=== PATIENT | female | born 1990 | race Hispanic/Latino ===

== ENCOUNTER 2019-04-20 11:20 | Emergency (ER) | payer OTHER ==
--- NOTE | 2019-04-20 11:51 | ER ---
Nurse's Notes [facility] Name: Osmin Cedeno Age: 28 yrs Sex: Female : 1990 Arrival Date: 04/20/2019 Time: 11:23 Bed 17 Private MD: Ramila Lyon Diagnosis: Cutaneous abscess of chest wall Presentation: 04/20 11:27 Presenting complaint: Mother states: Last night she saw a boil underneath her bra line, aj1 and when her caregiver went to see what it was there was pus coming out of it. Transition of care: patient was not received from another setting of care. Onset of symptoms was March 2019. Risk Assessment: Do you want to hurt yourself or someone else? Patient reports no desire to harm self or others. Initial Sepsis Screen: Does the patient meet any 2 criteria? No. Patient's initial sepsis screen is negative. Does the patient have a suspected source of infection? Yes: Skin breakdown/wound. Care prior to arrival: None. 11:27 Method Of Arrival: Ambulatory aj 11:27 Acuity: NABIL 4 aj1 Triage Assessment: 11:30 General: Appears in no apparent distress. comfortable, Behavior is calm, cooperative, aj1 appropriate for age. Pain: Unable to use pain scale. Does not appear to understand pain scale. Neuro: Level of Consciousness is awake, alert, obeys commands. Historical: - Allergies: 11:30 No Known Allergies; aj1 - Home Meds: 11:30 None [Active]; aj1 - PMHx: 11:30 Hypertension; autism; aj1 - Immunization history:: Flu vaccine status is unknown. - Social history:: Smoking status: Patient/guardian denies using tobacco. - Ebola Screening: : Patient denies travel to an Ebola-affected area in the 21 days before illness onset. Screenin:45 Abuse screen: no apparent signs noted. Nutritional screening: No deficits noted. em Tuberculosis screening: No symptoms or risk factors identified. Fall Risk None identified. Assessment: 11:45 General: Appears in no apparent distress. comfortable, Behavior is calm, cooperative. em Pain: Unable to use pain scale. FLACC scale score is 0 out of 10. Neuro: Level of Consciousness is awake, alert, obeys commands. Cardiovascular: Capillary refill < 3 seconds is brisk Patient's skin is warm and dry. Respiratory: Airway is patent Respiratory effort is even, unlabored, Respiratory pattern is regular, symmetrical. Derm: Skin is intact, Skin is pink, warm \T\ dry. Wound noted under right breast Abscess located on under right breast is quarter sized, has purulent drainage, is red. Musculoskeletal: Capillary refill < 3 seconds, is brisk, Range of motion: intact in all extremities. Vital Signs: 11:30 BP 145 / 87; Pulse 82; Resp 18; Temp 98.8; Pulse Ox 100% on R/A; aj1 ED Course: 11:23 Patient arrived in ED. as 11: Ramila Lyon MD is Private Physician. as 11: [facility] kb 11: Francis Bassett MD is Attending Physician. kb 11: Triage completed. aj1 11:30 Arm band placed on Patient placed in an exam room. aj1 11:34 Elias Hardy LVN is Primary Nurse. em 11:45 Patient has correct armband on for positive identification. Bed in low position. Call em light in reach. Adult w/ patient. 12:00 No provider procedures requiring assistance completed. Patient did not have IV access em during this emergency room visit. Administered Medications: 11:51 Drug: Bactrim (160 mg-800 mg (DS) 1 tablet Route: PO; em 12:04 Follow up: Response: Medication administered at discharge. em 11:52 Drug: KeFLEX 500 mg Route: PO; em 12:05 Follow up: Response: Medication administered at discharge. em Outcome: 11:51 Discharge ordered by MD. 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 medication usage, wound care, Demonstrated understanding of instructions, follow-up care, medications, wound care, Prescriptions given X 2. 12:06 Patient left the ED. em Signatures: Juana Cedeno FNP-C FNP-Casi Foster, RN RN aj1 Elias Hardy LVN LVN em Sandrine Cardenas as
--- NOTE | 2019-04-20 11:52 | EDPHYS ---
Physician Documentation [facility] Name: Osmin Cedeno Age: 28 yrs Sex: Female : 1990 Arrival Date: 04/20/2019 Time: 11:23 Bed 17 Private MD: Ramila Lyon ED Physician Francis Bassett HPI: 04/20 11:48 This 28 yrs old Female presents to ER via Ambulatory with complaints of Boil. kb 11:48 The patient presents with an abscess of the below right breast, at bra line. kb Description: draining, erythematous. Onset: The symptoms/episode began/occurred 2 day(s) ago. Possible cause(s): unknown. Associated signs and symptoms: Pertinent positives: drainage, erythema, swelling, Pertinent negatives: foreign body sensation, fever, headache, nausea, shortness of breath, vomiting. Modifying factors: the symptoms are alleviated by nothing, the symptoms are aggravated by nothing. Severity of symptoms: At their worst the symptoms were mild, in the emergency department the symptoms are unchanged. The patient has not experienced similar symptoms in the past. The patient has not recently seen a physician. dime-sized abscess below right breast at bra line. Started draining yesterday. Historical: - Allergies: 11:30 No Known Allergies; aj1 - Home Meds: 11:30 None [Active]; aj1 - PMHx: 11:30 Hypertension; autism; aj1 - Immunization history:: Flu vaccine status is unknown. - Social history:: Smoking status: Patient/guardian denies using tobacco. - Ebola Screening: : Patient denies travel to an Ebola-affected area in the 21 days before illness onset. ROS: 11:45 Constitutional: Negative for fever, chills, and weight loss, Cardiovascular: Negative kb for chest pain, palpitations, and edema, Respiratory: Negative for shortness of breath, cough, wheezing, and pleuritic chest pain, Abdomen/GI: Negative for abdominal pain, nausea, vomiting, diarrhea, and constipation, MS/Extremity: Negative for injury and deformity, Neuro: Negative for headache, weakness, numbness, tingling, and seizure. 11:45 Skin: Positive for abscess, of the under right breast, at bra line, Negative for Exam: 11:46 Constitutional: This is a well developed, well nourished patient who is awake, alert, kb and in no acute distress. Head/Face: Normocephalic, atraumatic. Chest/axilla: Normal chest wall appearance and motion. Nontender with no deformity. No lesions are appreciated. Cardiovascular: Regular rate and rhythm with a normal S1 and S2. No gallops, murmurs, or rubs. Normal PMI, no JVD. No pulse deficits. Respiratory: Lungs have equal breath sounds bilaterally, clear to auscultation and percussion. No rales, rhonchi or wheezes noted. No increased work of breathing, no retractions or nasal flaring. Abdomen/GI: Soft, non-tender, with normal bowel sounds. No distension or tympany. No guarding or rebound. No evidence of tenderness throughout. MS/ Extremity: Pulses equal, no cyanosis. Neurovascular intact. Full, normal range of motion. Neuro: Awake and alert, GCS 15, oriented to person, place, time, and situation. Cranial nerves II-XII grossly intact. Motor strength 5/5 in all extremities. Sensory grossly intact. Cerebellar exam normal. Normal gait. 11:46 Skin: abscess, that is small, of the below right breast at bra line, with drainage. Vital Signs: 11:30 BP 145 / 87; Pulse 82; Resp 18; Temp 98.8; Pulse Ox 100% on R/A; aj1 MDM: 11:36 Patient medically screened. kb 11:43 Data reviewed: vital signs, nurses notes. Data interpreted: Pulse oximetry: on room air kb is 100 %. Interpretation: normal. 11:48 Counseling: I had a detailed discussion with the patient and/or guardian regarding: the kb historical points, exam findings, and any diagnostic results supporting the discharge/admit diagnosis, the need for outpatient follow up, a family practitioner, to return to the emergency department if symptoms worsen or persist or if there are any questions or concerns that arise at home. 04/20 11:43 Order name: Wound Culture kb Administered Medications: 11:51 Drug: Bactrim (160 mg-800 mg (DS) 1 tablet Route: PO; em 12:04 Follow up: Response: Medication administered at discharge. em 11:52 Drug: KeFLEX 500 mg Route: PO; em 12:05 Follow up: Response: Medication administered at discharge. em Disposition: 15:11 Co-signature as Attending Physician, Francis Bassett MD. rn Disposition: 04/20/19 11:51 Discharged to Home. Impression: Cutaneous abscess of chest wall. - Condition is Stable. - Discharge Instructions: Skin Abscess, [id number]. - Prescriptions for Keflex 500 mg Oral Capsule - take 1 capsule by ORAL route every 8 hours for 10 days; 30 capsule. Bactrim DS 800- 160 mg Oral Tablet - take 1 tablet by ORAL route every 12 hours for 10 days; 20 tablet. - Medication Reconciliation Form, Thank You Letter, Antibiotic Education, Prescription Opioid Use form. - Follow up: Emergency Department; When: As needed; Reason: Worsening of condition. Follow up: Private Physician; When: 2 - 3 days; Reason: Recheck today's complaints, Continuance of care, Re-evaluation by your physician. Signatures: Dispatcher [employer] EDJuana Jones, WIRELESS NETWORK ENGINEER-C WIRELESS NETWORK ENGINEER-Ckb Casi Arias RN RN aj1 Elias Hardy, HOOKER OPERATOR HOOKER OPERATOR em Francis Bassett MD MD manager government: (The following items were deleted from the chart) 11:50 11:48 dime-sized abscess below right breast at bra line . kb kb 12:06 11:51 04/20/2019 11:51 Discharged to Home. Impression: Cutaneous abscess of chest wall. em Condition is Stable. Forms are Medication Reconciliation Form, Thank You Letter, Antibiotic Education, Prescription Opioid Use. Follow up: Emergency Department; When: As needed; Reason: Worsening of condition. Follow up: Private Physician; When: 2 - 3 days; Reason: Recheck today's complaints, Continuance of care, Re-evaluation by your physician. kb
[2019-04-20] MEDS ORDERED: SMZ./TMP. 800/160 MG TABLET ONE (12:00)
[2019-04-20] MEDS ORDERED: CEPHALEXIN 250 MG CAP ONE (12:00)
== END 2019-04-20 12:06 | disposition home or self-care (01) ==
LOC: ER 11:20
DX: L02.213 Cutaneous abscess of chest wall (principal); I10 Essential (primary) hypertension; F84.0 Autistic disorder
CPT/HCPCS: 87070; 87205; 99283